=== PATIENT | female | born 2000 | race Two or more races ===

== ENCOUNTER 2019-10-15 17:44 | Emergency (ER) | payer MEDICAID ==
[~2019-10-15] VITALS: Ht 160 cm; Wt 65.9 kg
[2019-10-15] MEDS ORDERED: DIPH25CA85 PO (18:00)
[2019-10-15 19:48] VITALS: BP 126/86
== END 2019-10-15 19:51 | disposition home or self-care (01) ==
LOC: EMS 17:44
DX: L25.9 Unspecified contact dermatitis, unspecified cause (principal)